=== PATIENT | female | born 1970 | race American Indian/Alaskan Native ===

== ENCOUNTER 2020-08-08 12:37 | Emergency (ER) | payer SELFPAY ==
--- NOTE | 2020-08-08 12:53 | Event Note ---
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 Further treatment and workup at subsequent clinical providers discretion. Patient/guardian urged not to elope from the ED as their condition may be serious if not clinically assessed and managed. Initial orders include: labs, xr, ekg
[2020-08-08 13:36] LABS: INR 1.03 (0.87-1.13)
[2020-08-08 13:37] LABS: Partial Thromboplastin Time 25.7 Sec. (24.2-36.6)
[2020-08-08] MEDS ORDERED: LORazepam 2 MG/ML VIAL IV ONE (13:37)
[2020-08-08 13:41] LABS: Red Blood Count 4.61 M/mm3 (3.65-5.03)
[2020-08-08 13:42] LABS: Basophils # (Auto) 0.1 K/mm3 (0.0-0.1); Basophils % (Auto) 1.2 % (0.0-1.8); Eosinophils # (Auto) 0.2 K/mm3 (0.0-0.4); Eosinophils % (Auto) 3.5 % (0.0-4.3); Hemoglobin 13.7 gm/dl (10.1-14.3); Lymphocytes # (Auto) 2.2 K/mm3 (1.2-5.4); Lymphocytes % (Auto) 32.8 % (13.4-35.0); Mean Corpuscular HGB Conc 34 % (30-34); Mean Corpuscular Volume 87 fl (79-97); Monocytes # (Auto) 0.5 K/mm3 (0.0-0.8); Monocytes % (Auto) 7.5 % (0.0-7.3); Platelet Count 348 K/mm3 (140-440); Red Cell Distribution Width 13.5 % (13.2-15.2)
[2020-08-08 14:11] LABS: Alanine Aminotransferase 23 units/L (7-56); Albumin 4.1 g/dL (3.9-5); BUN/Creatinine Ratio 16; Blood Urea Nitrogen 14 mg/dL (7-17); Calcium 9.4 mg/dL (8.4-10.2); Hemolysis Index 2
--- NOTE | 2020-08-08 14:16 | XRay Report ---
CHEST 1 VIEW 08/08/2020 2:01 PM INDICATION / CLINICAL INFORMATION: hypertension. COMPARISON: None available. FINDINGS: SUPPORT DEVICES: None. HEART / MEDIASTINUM: No significant abnormality. LUNGS / PLEURA: No significant pulmonary or pleural abnormality. No pneumothorax. ADDITIONAL FINDINGS: No significant additional findings. IMPRESSION: 1. No acute findings. Signer Name: Jimenez Sneed MD Signed: 08/08/2020 2:12 PM Workstation Name: [id number]
[2020-08-08] MEDS ORDERED: POTASSIUM CHLORIDE ER 20 MEQ TAB PO ONE (14:35)
--- NOTE | 2020-08-08 14:35 | Emergency Department Report ---
ED Shortness of Breath HPI - General Chief Complaint: Dyspnea/Respdistress Stated Complaint: SOB Time Seen by Provider: 08/08/20 12:51 Source: patient Mode of arrival: Ambulatory Limitations: No Limitations - History of Present Illness Initial Comments: This is a 49-year-old female who appears to be very anxious with pressurized speech. As such is a bit difficult to get historical information from her. I believe that she has had tachycardia and shortness of breath for at least a week. She was seen by her primary care physician and then referred to a milk pasteurizer. She states that she had blood work done to include thyroid function studies which was normal. She had an echocardiogram according to the midlevel practitioner this morning. Apparently, she did have Dr. Mason's card and has seen him. Patient admits to a history of hypertension and apparent previous noncompliance. She has 2 blood pressure pills recently prescribed. She states she has been compliant with amlodipine and HCTZ. Patient denies cough and chest pain. She has had no fever or chills. She denies Covid exposure. She states that both her legs are a bit swollen but not specifically painful. She has had some bilateral leg swelling. She is aware of her tachycardia and states it has persisted for the last 2 weeks. MD Complaint: shortness of breath -: Gradual, week(s) Quality: other (No pain complaint. Denies chest pain.) Associated Symptoms: denies other symptoms Treatments Prior to Arrival: other (Antihypertensive) - Related Data Previous Rx's Medication Instructions Recorded Last Taken Type Potassium Chloride [K-Dur] 10 meq PO QDAY #20 tablet 08/08/20 Unknown Rx Allergies Allergy/AdvReac Type Severity Reaction Status Date / Time No Known Allergies Allergy Unverified 08/08/20 12:38 ED Review of Systems ROS: Stated complaint: SOB Other details as noted in HPI Constitutional: denies: chills, fever Eyes: denies: eye pain, eye discharge, vision change ENT: denies: ear pain, throat pain Respiratory: shortness of breath. denies: cough, wheezing Cardiovascular: edema. denies: chest pain, palpitations Endocrine: no symptoms reported Gastrointestinal: denies: abdominal pain, nausea, diarrhea Genitourinary: denies: urgency, dysuria Musculoskeletal: denies: back pain, joint swelling, arthralgia Skin: denies: rash, lesions Neurological: denies: headache, weakness, paresthesias Psychiatric: denies: anxiety, depression Hematological/Lymphatic: denies: easy bleeding, easy bruising ED Past Medical Hx - Past Medical History Previous Medical History?: Yes Hx Hypertension: Yes - Surgical History Past Surgical History?: Yes Additional Surgical History: Left ACL. Not recent. - Social History Smoking Status: Never Smoker - Medications Home Medications: Home Medications Medication Instructions Recorded Confirmed Last Taken Type Potassium Chloride [K-Dur] 10 meq PO QDAY #20 tablet 08/08/20 Unknown Rx ED Physical Exam - General Limitations: Physical Limitation General appearance: alert, anxious - Head Head exam: Present: atraumatic, normocephalic - Eye Eye exam: Present: normal appearance. Absent: scleral icterus - ENT ENT exam: Present: mucous membranes moist - Neck Neck exam: Present: normal inspection. Absent: tenderness, meningismus - Respiratory Respiratory exam: Present: normal lung sounds bilaterally. Absent: respiratory distress - Cardiovascular Cardiovascular Exam: Present: normal rhythm, tachycardia. Absent: systolic murmur, diastolic murmur, rubs, gallop - GI/Abdominal GI/Abdominal exam: Present: soft, normal bowel sounds. Absent: distended, tenderness, guarding, rebound, rigid - Extremities Exam Extremities exam: Present: other (Trace to 1+ pretibial edema bilaterally). Absent: calf tenderness - Back Exam Back exam: Present: normal inspection - Neurological Exam Neurological exam: Present: alert, oriented X3, CN II-XII intact. Absent: motor sensory deficit - Psychiatric Psychiatric exam: Present: normal affect, normal mood - Skin Skin exam: Present: warm, dry, intact, normal color. Absent: rash ED Course Vital Signs 08/08/20 08/08/20 08/08/20 12:41 13:55 13:59 Temperature 98.0 F Pulse Rate 127 H 97 H Respiratory 24 18 18 Rate Blood Pressure 150/95 Blood Pressure 127/66 [Right] O2 Sat by Pulse 100 99 Oximetry 08/08/20 14:46 Temperature Pulse Rate 100 H Respiratory 18 Rate Blood Pressure Blood Pressure 116/88 [Right] O2 Sat by Pulse 98 Oximetry - Reevaluation(s) Reevaluation #1: Patient tells me that she is certain that she had an echocardiogram already at the milk pasteurizer office. When I called him there was some uncertainty about that. I just do not think the echocardiogram has been read yet. I was going to get one here but that obviously would be unnecessary. Patient's heart rate is in the low 90s. She states that her heart rate has been variable from the 50s to the 100s. She states that she "does not like her job" and she thinks that may be stressful. Her pulse oximetry is consistent with the 99-100. Her respiratory rate is normal. She has not complaining of shortness of breath here whatsoever. The patient has very poor peripheral access. Her D-dimer is 170. I do not think there is indication for more diagnostic imaging at this time. She is directed to follow-up with her milk pasteurizer tomorrow. We we will continue to replete her potassium and magnesium. Further evaluation as an outpatient. 08/08/20 15:28 ED Medical Decision Making - Lab Data Result diagrams: 08/08/20 13:14 08/08/20 13:14 Laboratory Results - last 24 hr 08/08/20 08/08/20 08/08/20 13:14 13:14 13:14 WBC 6.7 RBC 4.61 Hgb 13.7 Hct 40.0 MCV 87 MCH 30 MCHC 34 RDW 13.5 Plt Count 348 Lymph % (Auto) 32.8 Treasure % (Auto) 7.5 H Eos % (Auto) 3.5 Baso % (Auto) 1.2 Lymph # (Auto) 2.2 Treasure # (Auto) 0.5 Eos # (Auto) 0.2 Baso # (Auto) 0.1 Seg Neutrophils % 55.0 Seg Neutrophils # 3.7 PT 13.3 INR 1.03 APTT 25.7 D-Dimer 177.46 Sodium 136 L Potassium 2.8 L* Chloride 98.2 Carbon Dioxide 26 Anion Gap 15 BUN 14 Creatinine 0.9 Estimated GFR > 60 BUN/Creatinine Ratio 16 Glucose 116 H Calcium 9.4 Magnesium 1.60 L Total Bilirubin 0.40 AST 21 ALT 23 Alkaline Phosphatase 73 Total Creatine Kinase 365 H Troponin T < 0.010 NT-Pro-B Natriuret Pep 22.63 Total Protein 7.8 Albumin 4.1 Albumin/Globulin Ratio 1.1 HCG, Qual 08/08/20 13:14 WBC RBC Hgb Hct MCV MCH MCHC RDW Plt Count Lymph % (Auto) Treasure % (Auto) Eos % (Auto) Baso % (Auto) Lymph # (Auto) Treasure # (Auto) Eos # (Auto) Baso # (Auto) Seg Neutrophils % Seg Neutrophils # PT INR APTT D-Dimer Sodium Potassium Chloride Carbon Dioxide Anion Gap BUN Creatinine Estimated GFR BUN/Creatinine Ratio Glucose Calcium Magnesium Total Bilirubin AST ALT Alkaline Phosphatase Total Creatine Kinase Troponin T NT-Pro-B Natriuret Pep Total Protein Albumin Albumin/Globulin Ratio HCG, Qual Negative - EKG Data -: EKG Interpreted by Me EKG shows normal: sinus rhythm, axis (Leftward) Rate: tachycardia - EKG Data Interpretation: other (Diffuse repolarization abnormality) - Radiology Data Radiology results: report reviewed, image reviewed (Chest x-ray normal) Critical care attestation.: If time is entered above; I have spent that time in minutes in the direct care of this critically ill patient, excluding procedure time. ED Disposition Clinical Impression: Tachycardia, Hypokalemia, Hypomagnesemia Disposition: - TO HOME OR SELFCARE Is pt being admited?: No Does the pt Need Aspirin: No Condition: Stable Instructions: Hypomagnesemia, Hypokalemia, Sinus Tachycardia Additional Instructions: Return any significant shortness of breath or other symptoms. Follow-up with your milk pasteurizer tomorrow on your echocardiogram report and further care. Magnesium supplements are available [id number]. Take these daily. Prescription for potassium as directed. Stop your HCTZ medicine. Monitor your blood pressure carefully. Prescriptions: Potassium Chloride [K-Dur] 10 meq PO QDAY #20 tablet Referrals: PRIMARY CARE, [Primary Care Provider] - 3-5 Days Time of Disposition: 15:34
[2020-08-08 16:04] VITALS: BP 127/76
[2020-08-09] MEDS ORDERED: MAGNESIUM OXIDE 400 MG TAB PO ONE (16:03)
== END 2020-08-08 16:03 | disposition home or self-care (01) ==
LOC: ED 12:37
DX: E87.6 Hypokalemia (principal); E83.42 Hypomagnesemia; R00.0 Tachycardia, unspecified; I10 Essential (primary) hypertension; Z79.899 Other long term (current) drug therapy; Z98.890 Other specified postprocedural states
CPT/HCPCS: 36415; 71045; 80053; 82550; 83735; 83880; 84443; 84484; 84703; 85025; 85379; 85610; 85730; 93005; 99284; J2060

== ENCOUNTER 2020-08-10 08:34 | Outpatient (CLI) | payer SELFPAY ==
--- NOTE | 2020-08-10 13:38 | Cat Scan Report ---
CTA CHEST WITH CONTRAST INDICATION : Shortness of breath, tachycardia, elevated d-dimer. TECHNIQUE: Axial imaging performed through the chest, with contrast bolus timing set to maximize opa cification of the pulmonary arteries. Sagittal and coronal reformatted images. 3-plane MIP reformatte d images were obtained. All CT scans at this location are performed using CT dose reduction for ALAR A by means of automated exposure control. 100 mL of intravenous contrast administered. COMPARISON: AP chest performed 08/08/2020 FINDINGS: Bolus: Contrast bolus timing is adequate. PTE: No filling defect is present to suggest PTE. Mediastinum: Heart and great vessels appear normal. No pathologic mediastinal adenopathy. Lungs: Lungs are clear. Bones: Degenerative changes in the spine with nothing acute. Upper abdomen: Limited imaging of the upper abdomen shows nothing acute. IMPRESSION: Negative for PTE. Clear lungs. Signer Name: Sanket Barroso Jr, MD Signed: 08/10/2020 1:34 PM Workstation Name: [id number]
== END 2020-08-10 08:35 | disposition home or self-care (01) ==
LOC: CT 08:34
PROVIDERS: ATTEND Internal Medicine Cardiovascular Disease
DX: R79.89 Other specified abnormal findings of blood chemistry (principal); R06.02 Shortness of breath; R00.0 Tachycardia, unspecified; M47.814 Spondylosis without myelopathy or radiculopathy, thoracic region
CPT/HCPCS: 71275; Q9967